=== PATIENT | male | born 1975 | race Caucasian/White ===

== ENCOUNTER 2023-02-20 11:36 | Observation (INO) | payer OTHER ==
[2023-02-20] MEDS ORDERED: ASPIRIN 81 MG CHEWABLE TABLETS PO ONE (11:53)
[2023-02-20] MEDS ORDERED: ASPIRIN 81 MG CHEWABLE TABLETS ONE (11:57)
[2023-02-20] MEDS ORDERED: NITROGLYCERIN SUBLINGUAL 1/200 0.3 MG BTL SL ONE (12:13)
[2023-02-20] MEDS ORDERED: ACETAMINOPHEN 325 MG TABLET (FP) PO ONE (12:18)
[2023-02-20] MEDS ORDERED: NITROGLYCERIN SUBLINGUAL 1/150 0.4 MG TAB SL ONE (12:21)
[2023-02-20] MEDS ORDERED: NITROGLYCERIN SUBLINGUAL 1/150 0.4 MG TAB ONE (12:22)
[2023-02-20] MEDS ORDERED: ACETAMINOPHEN 325 MG TABLET (FP) ONE (12:22)
[2023-02-20 12:23] LABS: INR 0.97 (0.83-1.09); PROTHROMBIN TIME (PATIENT) 11.2 SEC (9.7-13.0)
[2023-02-20 12:25] LABS: HEMATOCRIT 46.8 % (35.4-49); HEMOGLOBIN 16.3 G/dL (11.7-16.9); MCH 30.3 pg (25.7-33.7); MCHC 34.9 g/dl (32.0-35.9); MEAN CELL VOLUME 86.8 fl (80-96); MEAN PLT VOLUME 9.5 fl (7.5-11.1); PLATELET COUNT 162.9 10^3/uL (134-434); RBC 5.39 10^6/uL (4.00-5.60); RDW 14.8 % (11.9-15.9)
[2023-02-20 12:29] LABS: PLATELET ESTIMATE ADEQUATE
[2023-02-20 12:36] LABS: ALBUMIN 4.7 g/dl (3.4-5.0); BLOOD UREA NITROGEN 11.6 mg/dl (7-18); CALCIUM 9.7 mg/dl (8.5-10.1); POTASSIUM 3.4 mmol/L (3.5-5.1); SGOT/AST 11.5 U/L (15-37); SGPT/ALT 12.4 U/L (7-52); TOT PROT 7.2 g/dl (6.4-8.2)
[2023-02-20 15:48] LABS: BILIRUBIN,TOTAL 1.2 mg/dL (0.2-1)
[2023-02-20 18:10] VITALS: BMI 24.8
[2023-02-20] MEDS ORDERED: DOCUSATE SODIUM 100 MG CAPSULE (FP) PO PRN (20:24)
[2023-02-20] MEDS ORDERED: ACETAMINOPHEN 1000 MG/100 ML BAG IVPB PRN (20:29)
[2023-02-20] MEDS: metoPROLOL SUCCINATE 25 MG TAB.SR.24H (FP) PO SCH (20:51)
[2023-02-20] MEDS: RAMIPRIL 5 MG CAPSULE PO SCH (20:51)
[2023-02-20 21:47] LABS: PHOSPHOROUS 4.39 (2.5-4.9)
[2023-02-20] MEDS ORDERED: ROSUVASTATIN CA 5 MG TABLET PO SCH (22:00)
[2023-02-20 23:13] VITALS: RESP 18
[2023-02-21] MEDS ORDERED: KETOROLAC TROMETHAMINE 30 MG/1 ML VIAL IM PRN (01:45)
[2023-02-21 09:09] VITALS: PULSE 66
[2023-02-21 10:46] LABS: BLOOD UREA NITROGEN 12.5 mg/dl (7-18); CALCIUM 9.7 mg/dl (8.5-10.1); POTASSIUM 4.6 mmol/L (3.5-5.1)
[2023-02-21] MEDS: RAMIPRIL 5 MG CAPSULE PO SCH (11:10)
[2023-02-21] MEDS: metoPROLOL SUCCINATE 25 MG TAB.SR.24H (FP) PO SCH (11:10)
[2023-02-21 12:21] LABS: BASO % 0.5 % (0-2.0); EOS % 3.5 % (0-4.5); HEMATOCRIT 47.8 % (35.4-49); HEMOGLOBIN 16.6 GM/dL (11.7-16.9); LYMPH % 21.8 % (8-40); MCH 29.3 pg (25.7-33.7); MCHC 34.7 g/dl (32.0-35.9); MEAN CELL VOLUME 84.4 fl (80-96); MEAN PLT VOLUME 9.9 fl (7.5-11.1); NEUT % 65.2 % (42.8-82.8); PLATELET COUNT 186 10^3/uL (134-434); RBC 5.67 M/mm3 (4.00-5.60); RDW 13.8 % (11.9-15.9); WHITE BLOOD COUNT 8.6 K/mm3 (4.0-10.0)
[2023-02-21 14:17] VITALS: BP 143/100; TEMP 98.6
[2023-02-21] MEDS ORDERED: ACETAMINOPHEN 325 MG TABLET (FP) PO PRN (20:24)
== END 2023-02-21 14:00 | disposition home or self-care (01) ==
LOC: FER 11:36 → FM/S 16:02
PROVIDERS: ADMIT Internal Medicine; ATTEND Internal Medicine
DX: I24.9 Acute ischemic heart disease, unspecified (principal); I10 Essential (primary) hypertension; E78.00 Pure hypercholesterolemia, unspecified; Z91.199 Patient's noncompliance with other medical treatment and regimen due to unspecified reason
CPT/HCPCS: 36415; 71045-TC-FY; 71046-TC-FY; 80048; 80053; 82550; 83735; 84100; 84484; 85025; 85027; 85379; 85610; 86850; 86900; 86901; 93005; 99285-25; G0378